=== PATIENT | female | born 1985 | race American Indian/Alaskan Native ===

== ENCOUNTER 2023-07-24 22:18 | Emergency (ER) | payer MEDICAID, OTHER ==
[~2023-07-24] VITALS: Ht 167.6 cm; Wt 91.0 kg
[2023-07-24 22:27] VITALS: O2SAT 99
[2023-07-24 22:55] LABS: HEMATOCRIT. 37.5 % (36.0-48.0); HEMOGLOBIN. 12.9 g/dL (12.0-16.0); MEAN CORPUSCULAR HEMOGLOBIN 34.6 pg (28.0-32.0); MEAN CORPUSCULAR HGB CONC 34.5 g/dL (31.0-37.0); MEAN CORPUSCULAR VOLUME 100.5 fL (81.0-99.0); MEAN PLATELET VOLUME 8.2 fl (7.4-10.4); PLATELET 339 x1000/uL (130-400); RED BLOOD CELL COUNT 3.73 mill/uL (4.2-5.4); RED CELL DISTRIBUTION WIDTH 15.9 % (11.6-14.6); WHITE BLOOD COUNT 13.2 x1000/uL (4.5-11.0)
[2023-07-24 22:56] LABS: DIFFERENTIAL COMMENT 1
[2023-07-24 23:03] LABS: CARBON DIOXIDE 27 mEq/L (21-32); CHLORIDE 101 mEq/L (98-107); POTASSIUM 3.2 mEq/L (3.5-5.1); SODIUM 137 mEq/L (136-145)
[2023-07-24 23:04] LABS: CALCIUM 9.7 mg/dL (8.7-10.4); PROTHROMBIN TIME 11.5 sec (9.6-11.0)
[2023-07-24 23:09] LABS: CREATININE 0.8 mg/dL (0.6-1.0); GLUCOSE 153 mg/dL (70-105); UREA NITROGEN BLOOD 7 mg/dL (9-23)
[2023-07-24 23:10] LABS: ALANINE AMINOTRANSFERASE 7 IU/L (10-49)
[2023-07-24 23:11] LABS: ALBUMIN 4.7 g/dL (3.2-4.8); ASPARTATE AMINOTRANSFERASE 11 IU/L (<34); BILIRUBIN DIRECT 0.4 mg/dL (<=3.0); PROTEIN TOTAL 7.7 g/dL (6.0-8.3)
[2023-07-24 23:13] LABS: HCG SCREEN NEGATIVE
[2023-07-24 23:17] LABS: ETHANOL BLOOD < 10 mg/dL (<10)
[2023-07-24 23:19] LABS: ANISOCYTOSIS 1+; PLATELET ESTIMATE NORMAL
[2023-07-24] MEDS: SODIUM CHLORIDE 0.9% 1,000 ML IV ONE (23:19)
[2023-07-24] MEDS: METOCLOPRAMIDE HCL 10MG/2ML VIAL IV STA (23:19)
[2023-07-24] MEDS: PANTOPRAZOLE SODIUM 40 MG/VIAL IV STA (23:19)
[2023-07-24] MEDS: MAGNESIUM/ALUMINUM HYDROXIDE/SIMETHICONE 30ML UDC PO STA (23:27)
[2023-07-24 23:48] LABS: CLARITY URINE TURBID (CLEAR); COLOR URINE YELLOW (YELLOW); GLUCOSE URINE NEGATIVE (NEGATIVE); KETONES URINE TRACE (NEGATIVE); LEUKOCYTE ESTERASE URINE NEGATIVE (NEGATIVE); NITRITE URINE NEGATIVE (NEGATIVE); OCCULT BLOOD URINE 2+ (NEGATIVE); PH URINE 5.5 (4.5-8.0); PROTEIN URINE 1+ (NEGATIVE); SPECIFIC GRAVITY URINE 1.021 (1.005-1.030)
[2023-07-24 23:56] LABS: *AMPHETAMINES SCREEN URINE NEGATIVE (NEGATIVE); *BARBITURATES SCREEN URINE NEGATIVE (NEGATIVE); *BENZODIAZEPINES SCREEN URINE NEGATIVE (NEGATIVE); *COCAINE SCREEN URINE NEGATIVE (NEGATIVE); CANNABINOID URINE SCREEN PRESUMPTIVE POSITIVE (NEGATIVE); ECSTASY MDMA SCREEN URINE NEGATIVE (NEGATIVE); METHADONE URINE SCREEN NEGATIVE (NEGATIVE); OPIATES URINE SCREEN NEGATIVE (NEGATIVE); PHENCYCLIDINE URINE SCREEN NEGATIVE (NEGATIVE)
[2023-07-25 00:19] LABS: BACTERIA URINE 2+; MUCUS URINE 1+ /lpf (< = 2+); SQUAMOUS EPITHELIAL CELL URINE 3+ /lpf (RARE/1+); WBC URINE 0-2 /hpf (0-2)
[2023-07-25] MEDS: ONDANSETRON HCL 4MG/2ML INJ IV ONE ×2 (01:47→03:26)
[2023-07-25] MEDS: HALOPERIDOL LACTATE 5MG/ML VIAL IM ONE (01:47)
[2023-07-25] MEDS ORDERED: ONDA4TAB50 MT (03:22)
[2023-07-25] MEDS ORDERED: SUCR1TAB MT (03:22)
[2023-07-25 04:03] VITALS: BP 120/76; PULSE 82; RESP 23; TEMP 98
== END 2023-07-25 04:03 | disposition home or self-care (01) ==
LOC: ER 22:18
DX: K31.84 Gastroparesis (principal); I10 Essential (primary) hypertension; F12.10 Cannabis abuse, uncomplicated
CPT/HCPCS: 80076; 80305; 80048; 81003; 80320; 84703; 83690; 85025; 85610; 36415; 96361; 96374; 96375 ×2; 99285; 96372; 96376; J2765; C9113; J7030; J1630; J2405; Z7610 ×2; G0480